=== PATIENT | male | born 1995 | race Caucasian/White ===

== ENCOUNTER 2021-05-20 01:40 | Emergency (ER) | payer MEDICAID, OTHER ==
[~2021-05-20] VITALS: Ht 167.6 cm; Wt 49.0 kg
--- NOTE | 2021-05-20 01:40 | NUR ---
Patient walked in ER c/o stabbing CP with palpitation that started 2 days ago, patient also c/o nausea and vomiting 1x
--- NOTE | 2021-05-20 01:45 | NUR ---
Dr Kohli in room for ARNULFO
[2021-05-20] MEDS ORDERED: ASPIRIN 325 MG TABLET PO ONE (02:00)
[2021-05-20] MEDS ORDERED: ONDANSETRON ODT 4 MG TAB.RAPDIS SL ONE (02:00)
[2021-05-20] MEDS ORDERED: ASPIRIN 325 MG TABLET ONE (02:02)
[2021-05-20] MEDS ORDERED: ONDANSETRON HCL 4 MG TABLET ONE (02:02)
[2021-05-20] MEDS ORDERED: IV NS 1000 ML 1,000 ML IV ONE (02:15)
[2021-05-20 02:46] LABS: HEMATOCRIT 42.3 % (36.7-47.1); MEAN CORPUSCULAR HEMOGLOBIN 29.5 uug (23.8-33.4); MEAN CORPUSCULAR VOLUME 87.4 fL (73.0-96.2); PLATELET COUNT (AUTO) 250 K/uL (152-348)
[2021-05-20] MEDS ORDERED: METHIMAZOLE 5 MG TABLET PO SCH (03:00)
[2021-05-20] MEDS ORDERED: GUAN2TAB14 PO (03:03)
[2021-05-20] MEDS ORDERED: FAMO40TA7 PO (03:03)
[2021-05-20] MEDS ORDERED: PROP10TA10 PO (03:03)
[2021-05-20] MEDS ORDERED: BUPR100T5 PO (03:03)
[2021-05-20] MEDS ORDERED: METH5TAB6 PO (03:03)
[2021-05-20 04:06] LABS: CARBON DIOXIDE 28 mmol/L (21-32); CHLORIDE 105 mmol/L (98-107); GLUCOSE 98 mg/dL (74-106); POTASSIUM 4.2 mmol/L (3.5-5.1)
[2021-05-20 04:07] LABS: ALANINE AMINOTRANSFERASE 28 U/L (16-63); ALKALINE PHOSPHATASE 51 U/L (50-136); ASPARTATE AMINOTRANSFERASE 11 U/L (15-37); BILIRUBIN,DIRECT 0.1 mg/dL (0.0-0.2); BILIRUBIN,TOTAL 0.5 mg/dL (0.2-1.0); CREATININE 0.7 mg/dL (0.6-1.3); UREA NITROGEN, BLOOD 18 mg/dL (7-18)
[2021-05-20 04:09] LABS: TOTAL PROTEIN, SERUM 6.5 g/dL (6.4-8.2)
[2021-05-20 05:10] LABS: CREATINE KINASE, TOTAL 28 U/L (39-308); ETHANOL < 3 MG/DL (0-0)
[2021-05-20] MEDS ORDERED: IV NORMAL SALINE 500 ML IV ONE (05:30)
[2021-05-20 05:31] LABS: *BILIRUBIN,URIN NEGATIVE (NEGATIVE); *BLOOD, URINE NEGATIVE (NEGATIVE); *CLARITY,URINE CLEAR (CLEAR); *COLOR,URINE YELLOW (YELLOW); *KETONES,URINE NEGATIVE (NEGATIVE); *UROBILINOGEN,URINE 0.2 E.U./dl (NORMAL); LEUKOCYTE ESTERASE ,URINE TRACE (NEGATIVE); NITRITE, URINE NEGATIVE (NEGATIVE); PH,URINE 6.5 (5.0-8.0); UGLUCOSE NEGATIVE (NEGATIVE)
[2021-05-20 05:43] LABS: *AMPHETAMINE, URINE NEGATIVE (NEGATIVE); *CANNABINOID, URINE POSITIVE (NEGATIVE); *PHENCYCLIDINE SCREEN,URINE NEGATIVE (NEGATIVE)
--- NOTE | 2021-05-20 06:42 | NUR ---
Patient discharged to home in stable condition. Written and verbal after care instructions given. Patient verbalizes understanding of instructions. Stressed follow up or return to ER for worsening s/s. Patient is a/o x4, IV discontinued, vital signs stable, able to ambulate in steady gait, no SOB, no CP, no distress noted.
[2021-05-20 06:44] VITALS: BP 128/62
[2021-05-20 12:03] LABS: *COCCAINE, URINE NEGATIVE (NEGATIVE); *OPIATE, URINE NEGATIVE (NEGATIVE)
[2021-05-20 16:47] LABS: NEUTROPHILS % (MANUAL) 0 % (42-75)
[2021-05-20 17:02] LABS: BACTERIA,URINE NONE SEEN /HPF (NONE SEEN); RBC,URINE 0-3 /HPF (0-3); SQUAMOUS EPITHELIAL CELL,UR NONE SEEN /HPF (NONE SEEN)
== END 2021-05-20 06:45 | disposition home or self-care (01) ==
LOC: ER 01:53
DX: R07.9 Chest pain, unspecified (principal); E05.00 Thyrotoxicosis with diffuse goiter without thyrotoxic crisis or storm; R79.1 Abnormal coagulation profile; R00.0 Tachycardia, unspecified; Z79.899 Other long term (current) drug therapy; Z86.11 Personal history of tuberculosis; R03.0 Elevated blood-pressure reading, without diagnosis of hypertension; Z20.822 Contact with and (suspected) exposure to COVID-19
CPT/HCPCS: 36415; 70030-TC; 71045; 83605; 84443; 84484; 85025; 87040; 93005; A4663; G0480; J7030; J7040; Q0162

== ENCOUNTER 2023-02-26 02:47 | Emergency (ER) | payer OTHER ==
[~2023-02-26] VITALS: Ht 167.6 cm; Wt 56.7 kg
[~2023-02-26 02:47] MED LIST: BUPR100T5 PO; FAMO40TA7 PO; GUAN2TAB14 PO; METH5TAB6 PO; PROP10TA10 PO
[2023-02-26] MEDS ORDERED: GUAN4TAB2 PO (03:01)
[2023-02-26] MEDS ORDERED: HYDROMORPHONE 1 MG/1 ML DISP.SYRIN IM ONE (03:15)
[2023-02-26] MEDS ORDERED: ONDANSETRON ODT 4 MG TAB.RAPDIS SL ONE (03:15)
[2023-02-26] MEDS ORDERED: HYDROMORPHONE 1 MG/1 ML DISP.SYRIN ONE (03:41)
[2023-02-26] MEDS ORDERED: ONDANSETRON HCL 4 MG TABLET ONE (03:41)
[2023-02-26 06:25] VITALS: BP 122/77; TEMP 97.8; O2SAT 98
== END 2023-02-26 06:26 | disposition home or self-care (01) ==
LOC: ER 02:54
DX: R51.9 Headache, unspecified (principal); J45.909 Unspecified asthma, uncomplicated; F17.210 Nicotine dependence, cigarettes, uncomplicated; Z71.6 Tobacco abuse counseling; Z79.899 Other long term (current) drug therapy
CPT/HCPCS: 99285; 70450; 99406; 96372; J1170; A4606; A4663; Q0162